=== PATIENT | female | born 1965 | race Caucasian/White ===

== ENCOUNTER 2017-05-29 15:10 | Observation (INO) ==
--- NOTE | 2017-05-29 15:41 | Emergency Department Note ---
Disposition Clinical Impression: Chest pain Qualifiers: Chest pain type: unspecified Qualified Code(s): R07.9 - Chest pain, unspecified Disposition: Admitted As Inpatient Condition: Good Time of Disposition: 17:50 Chest Pain HPI - General Chief Complaint: ED Chest Pain Stated Complaint: chest pain// light headed Time Seen by Provider: 05/29/17 15:35 Source: patient Limitations: no limitations Vital Signs Reviewed: Yes Nursing Notes Reviewed: Yes - History of Present Illness HPI Narrative: Patient presents to the ED the chief complaint of chest pain. Patient reports that a few hours prior to arrival. 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 She had associated nausea, diaphoresis, tingling in her face. The discomfort radiated into her left jaw and left arm. No vomiting. Was slightly short of breath at the time. Episode lasted 30-45 minutes consistently, and then resolved. States that she feels very weak and tired currently. Denies any changes in vision, but states that it feels like she has allergies in her eyes. She denies any diplopia or other concerns. No previous history of heart problems. States she has a history of hypertension. Does not smoke. No history of DVT, PE, malignancy or hormonal use. Severity scale (1-10): 10 - Related Data Home Medications Medication Instructions Recorded Confirmed Citalopram [CeleXA] 20 mg PO DAILY 05/10/16 05/29/17 hydroCHLOROthiazide 25 mg PO DAILY 05/29/17 05/29/17 [Hydrochlorothiazide] Allergies Allergy/AdvReac Type Severity Reaction Status Date / Time metronidazole [From Flagyl] AdvReac See Verified 05/29/17 19:49 Comments Penicillins [PCN] AdvReac Hives Verified 05/29/17 19:48 Eyes: Reports: vision change (difficult to describe) Cardiovascular: Reports: chest pain, palpitations Respiratory: Reports: dyspnea Gastrointestinal: Reports: nausea Musculoskeletal: Denies: back pain Integumentary: Denies: rash Neurological: Denies: weakness Endocrine: Reports: fatigue Chest Pain PMH - Past Medical History Medical history: Reports: asthma, hypertension Surgical history: Reports: cholecystectomy Psychiatric history: Reports: depression DISTRESSER history: Reports: no DISTRESSER history - Social History Smoking Status: Never smoker Alcohol use: Reports: rarely Drug use: Reports: none Physical Exam - General Limitations: no limitations General appearance: alert, in no apparent distress - Head Head exam: atraumatic, normocephalic, normal inspection - Eye Eye exam: Present: normal appearance, PERRL, EOMI - ENT ENT exam: normal exam, normal oropharynx, mucous membranes moist - Neck Neck exam: Present: normal inspection, full ROM, trachea midline - Chest Chest inspection: Present: normal inspection, symmetric chest wall rise - Respiratory Respiratory exam: Present: normal lung sounds bilaterally - Cardiovascular Cardiovascular exam: Present: regular rate, normal rhythm, normal heart sounds - Abdominal Exam Abdominal exam: Present: soft, Non-Tender. Absent: tenderness, distention, guarding, rebound, rigidity - Extremities Exam Extremities exam: Present: normal inspection, full ROM. Absent: tenderness, pedal edema - Back Exam Back exam: Present: normal inspection, full ROM. Absent: tenderness - Neurological Exam Neurological exam: Present: alert, oriented X3 - Psychiatric Psychiatric exam: Present: normal affect, normal mood - Skin Skin exam: Present: warm, dry, intact, normal color Course - Reevaluation(s) Reevaluation #1: Patient's heart score is 3, however, feel her symptoms are high risk and concerning. We will admit the hospitalist service for further workup. Patient family are agreeable with this and they did not fill comfortable sending her home either. Vital Signs Temperature 98 F 05/29/17 15:25 Pulse Rate 89 05/29/17 15:25 Respiratory Rate 20 05/29/17 15:25 Blood Pressure 138/85 05/29/17 15:25 O2 Sat by Pulse Oximetry 94 05/29/17 15:25 Temperature 97.7 F 05/29/17 19:33 Pulse Rate 90 05/29/17 19:33 Respiratory Rate 16 05/29/17 19:33 Blood Pressure 142/87 05/29/17 19:33 O2 Sat by Pulse Oximetry 96 05/29/17 19:33 Oxygen Delivery Oxygen Delivery Room Air Chest Pain - Medical Records Medical records reviewed: Yes I reviewed the patient's medical records. - Lab Data Lab results reviewed: Yes I reviewed the patient's lab results. Result diagrams: 05/29/17 15:38 05/29/17 15:38 Lab Results 05/29/17 05/29/17 05/29/17 Range/Units 15:38 15:38 15:38 WBC 10.3 (4.3-11.1) K/mcL RBC 4.82 (3.82-4.97) M/mcL Hgb 14.4 (11.5-15.4) g/dL Hct 41.5 (35.3-44.9) % MCV 86.1 (83.0-100.0) fL MCH 29.9 (28.0-33.3) pg MCHC 34.7 (31.6-35.5) g/dL RDW 12.4 (11.5-14.5) % Plt Count 252 (140-400) K/mcL MPV 8.7 L (9.4-12.4) fL Immature Gran % 0.5 (0-4) % Seg Neutrophils % 80.2 % Lymphocytes % 11.0 % Monocytes % 5.9 % Eosinophils % 2.0 % Basophils % 0.4 % Neutrophils # 8.2 (1.6-8.9) K/mcL Lymphocytes # 1.1 (0.6-4.6) K/mcL Monocytes # 0.6 (0.0-1.3) K/mcL Eosinophils # 0.2 (0.0-0.6) K/mcL Basophils # 0.0 (0.0-0.2) K/mcL Sodium 135 L (136-145) mEq/L Potassium 3.2 L (3.5-4.5) mEq/L Chloride 98 (98-109) mEq/L Carbon Dioxide 28 (19-29) mEq/L BUN 20 (7-20) mg/dL Creatinine 1.06 (0.57-1.11) mg/dL Est GFR ( Amer) > 60 (> 60) Est GFR (Non-Af Amer) 55 L (> 60) BUN/Creatinine Ratio 19 (6-26) Glucose 115 H (70-99) mg/dL Calculated Osmolality 284 (280-300) Calcium 9.8 (8.6-10.8) mg/dL Total Bilirubin 0.8 (0.2-1.2) mg/dL AST 32 (5-34) Units/L ALT 33 (0-55) Units/L Alkaline Phosphatase 98 (38-126) Units/L Troponin I 0.00 (0-0.03) ng/mL Serum Total Protein 7.7 (6.0-8.3) g/dL Albumin 4.1 (3.5-5.0) g/dL Globulin 3.6 H (2.4-3.5) g/dL Albumin/Globulin Ratio 1.1 (1.1-2.2) - Radiology Data Radiology results reviewed: Yes I reviewed the patient's radiology results. - EKG Data EKG attestation: Yes I reviewed and interpreted this EKG. EKG results narrative: Sinus rhythm, rate 88, IN interval 156, QRS 94, QTC 397, normal axis Heart Score - Score History: Highly Suspicious EKG: Normal Age: 45-65 Risk Factors: 1-2 risk factors Troponin: Less than normal limit HEART Score Total: 4 Attestation Statement - Attestation Attestation: I examined this patient and my medical decision-making was reviewed with the Resident Physician. I agree with the documented findings, disposition and treatment plan as described except to the extent set forth below. In summary 51 -year-old female with atypical chest pain symptoms. No recent cardiac catheterization or stress testing. Heart score is 3. Plan admit for further evaluation. Chest x-ray shows no acute findings. EKG nondiagnostic at time of admission. Initial cardiac biomarkers are negative.
[2017-05-29 16:01] LABS: Basophils % 0.4 %; Eosinophils # 0.2 K/mcL (0.0-0.6); Hematocrit 41.5 % (35.3-44.9); Hemoglobin 14.4 g/dL (11.5-15.4); Immature Granulocytes % 0.5 % (0-4); Lymphocytes # 1.1 K/mcL (0.6-4.6); Mean Corpuscular HGB Conc 34.7 g/dL (31.6-35.5); Mean Corpuscular Hemoglobin 29.9 pg (28.0-33.3); Mean Corpuscular Volume 86.1 fL (83.0-100.0); Mean Platelet Volume 8.7 fL (9.4-12.4); Monocytes # 0.6 K/mcL (0.0-1.3); Monocytes % 5.9 %; Neutrophils # 8.2 K/mcL (1.6-8.9); Platelet Count 252 K/mcL (140-400); Red Blood Count 4.82 M/mcL (3.82-4.97); Red Cell Distribution Width 12.4 % (11.5-14.5); Segmented Neutrophils % 80.2 %
[2017-05-29 16:18] LABS: Alanine Aminotransferase 33 Units/L (0-55); Albumin 4.1 g/dL (3.5-5.0); Albumin/Globulin Ratio 1.1 (1.1-2.2); Alkaline Phosphatase 98 Units/L (38-126); Aspartate Amino Transferase 32 Units/L (5-34); BUN/Creatinine Ratio 19 (6-26); Bilirubin,Total 0.8 mg/dL (0.2-1.2); Blood Urea Nitrogen 20 mg/dL (7-20); Calcium 9.8 mg/dL (8.6-10.8); Carbon Dioxide 28 mEq/L (19-29); Chloride 98 mEq/L (98-109); Globulin 3.6 g/dL (2.4-3.5); Glucose 115 mg/dL (70-99); Osmolality,Calculated 284 (280-300); Potassium 3.2 mEq/L (3.5-4.5); Sodium 135 mEq/L (136-145); Total Protein 7.7 g/dL (6.0-8.3); eGFR For African Americans > 60 (> 60); eGFR For Non-African Americans 55 (> 60)
[2017-05-29] MEDS ORDERED: Aspirin 325 MG TABLET PO ONE (16:44)
[2017-05-29] MEDS ORDERED: *HR* Morphine 2 MG/ML SYRINGE IVP PRN (17:58)
--- NOTE | 2017-05-29 18:12 | Internal Med History&Physical ---
<Amarilys Buckner - Last Filed: 05/29/17 18:05> Date of Encounter: 05/29/17 Time of Encounter: 18:06 Assessment and Plan (1) Chest pain Current visit: Yes Status: Acute presented with chest pain that started day of presentation. Improved in the ED, ASA given on arrival. Initial troponin negative, EKG without acute ST changes. No previous ischemic evaluation. Cycle troponin, check echo, stress test. TSH, Hgb A1c, lipid panel pending. Cont ASA, Qualifiers: Chest pain type: unspecified Qualified Code(s): R07.9 - Chest pain, unspecified (2) Essential hypertension Current visit: Yes Status: Acute per hx. BP mildly elevated. Cont home BP medications. Monitor BP and titrate PRN (3) Depression Current visit: Yes Status: Acute with anxiety. Cont home Celexa Qualifiers: Depression Type: major depressive disorder Qualified Code(s): F32.9 - Major depressive disorder, single episode, unspecified (4) DVT prophylaxis Current visit: Yes Status: Acute [facility] Internal Medicine - H&P: HPI Chief complaint: chest pain Admitted From: Home Plans for Post Hospital Care: Home History of present illness: Ms. Buckner is a 51 year old female with PMH HTN and depression who presented to [facility] [place] on 05/29/2017 with complaints of chest pain. She was placed in observation status for ACS rule out. Information obtained form chart review and patient report. Patient reports episode of chest pain day of presentation. Says she was sitting at desk at work, had abrupt onset chest pain. Described as a tightness, radiated to left arm and jaw. Says left arm felt heavy and she felt tingling sensation in jaws. Also reports associated dizziness, felt clammy and sweating. No SOB, CP resolved in the ED, says she has intermittent chest pain with deep inspiration Past Med Surg Social Fam HX - Past Medical History Medical history: asthma, hypertension Psychiatric history: depression - Past Surgical History Surgical History: cholecystectomy - Social History Smoking Status: Never smoker Smokeless Tobacco Status: No Alcohol use: rarely Drug use: none - Additional Family History Additional family history: Grandmother CAD Internal Medicine - H&P: Meds Citalopram [CeleXA] 20 mg PO DAILY 05/10/16 [History] hydroCHLOROthiazide [Hydrochlorothiazide] 25 mg PO DAILY 05/29/17 [History] Allergies metronidazole [From Flagyl] Adverse Reaction (Unverified 05/29/17 15:22) See Comments Penicillins [PCN] Adverse Reaction (Unverified 05/29/17 15:22) Hives All Systems PM: A 10-system review of systems was performed and is negative for pertinent findings except as documented above in the HPI. - Constitutional Constitutional: no chills, no fever(s), no night sweats - EENT Eyes: no change in vision, no discharge, no pain, no photophobia Ears: no ear discharge, no ear pain, no tinnitus Nose, mouth and throat: no dysphagia, no nasal discharge, no neck pain, no sore throat - Cardiovascular Cardiovascular ROS IM: chest pain, no diaphoresis, no dyspnea, no lightheadedness, no palpitations, no syncope - Respiratory Respiratory: no cough, no dyspnea, no wheezing, no excessive phlegm production - Gastrointestinal Gastrointestinal: no abdominal pain, no diarrhea, no hematemesis, no hematochezia, no melena, no nausea, no vomiting - Genitourinary Genitourinary: no change in urinary stream, no dysuria, no flank pain, no hematuria - Musculoskeletal Musculoskeletal ROS IM: no numbness, no tingling - Integumentary Integumentary IM: no rash, no unusual bruising - Neurological Neurological ROS: no confusion, no convulsions, no focal weakness, no numbness, no tingling, no tremor(s) - Hematologic/Lymphatic Hematologic/Lymphatic: no easy bruising - Constitutional Vitals: Temp Pulse Resp BP Pulse Ox 98 F 81 16 148/93 97 05/29/17 15:25 05/29/17 17:34 05/29/17 17:34 05/29/17 17:34 05/29/17 17:34 - Head Head exam: Present: atraumatic, normocephalic - Eye Eye exam: Present: PERRL, conjuntiva pink, sclera anicteric Pupils: Present: PERRL - Neck Neck exam general surgery: Present: supple, trachea midline. Absent: lymphadenopathy - Respiratory Respiratory exam: Present: CTAB. Absent: accessory muscle use, rales, rhonchi, wheezes - Cardiovascular Cardiovascular exam: Present: RRR, +S1, +S2. Absent: diastolic murmur, gallop, rubs, systolic murmur - GI/Abdominal GI/Abdominal exam: Present: normal bowel sounds, soft, no peritoneal signs. Absent: distended, tenderness - Extremities Exam Extremities exam: Present: warm, radial pulses palpable and symetrical. Absent : calf tenderness, cyanotic, pedal edema - Neurological Exam Neurological exam: Present: CN II-XII intact, oriented X3, no focal deficits. Absent: pronater drift, facial droop, speech deficit - Skin Skin exam: Present: dry, intact Internal Med - H&P Results - Labs CBC & Chem 7: 05/29/17 15:38 05/29/17 15:38 Labs: Short CBC 05/29/17 Range/Units 15:38 WBC 10.3 (4.3-11.1) K/mcL Hgb 14.4 (11.5-15.4) g/dL Hct 41.5 (35.3-44.9) % Plt Count 252 (140-400) K/mcL Neutrophils # 8.2 (1.6-8.9) K/mcL BMP 05/29/17 15:38 Sodium 135 L Potassium 3.2 L Chloride 98 Carbon Dioxide 28 BUN 20 Creatinine 1.06 Glucose 115 H Calcium 9.8 Cardiac Enzymes 05/29/17 Range/Units 15:38 Troponin I 0.00 (0-0.03) ng/mL Liver Function 05/29/17 Range/Units 15:38 Total Bilirubin 0.8 (0.2-1.2) mg/dL AST 32 (5-34) Units/L ALT 33 (0-55) Units/L Alkaline Phosphatase 98 (38-126) Units/L Albumin 4.1 (3.5-5.0) g/dL - Impressions ITS Impressions Chest X-Ray 05/29/17 15:23 IMPRESSION: No acute abnormality. D/ / Homero Hernandez MD / Homero Hernandez MD Interpreting Provider: Homero Hernandez MD <Fermin Kahn H - Last Filed: 05/29/17 18:25> Date of Encounter: 05/29/17 Internal Medicine - H&P: HPI History of present illness: Ms. Buckner is a 51 year old female All Systems PM: A 10-system review of systems was performed and is negative for pertinent findings except as documented above in the HPI. - Constitutional Vitals: Temp Pulse Resp BP Pulse Ox 98 F 81 16 148/93 97 05/29/17 15:25 05/29/17 17:34 05/29/17 17:34 05/29/17 17:34 05/29/17 17:34 Internal Med - H&P Results - Labs CBC & Chem 7: 05/29/17 15:38 05/29/17 15:38 - Attending Attestation Also past medical history of nephrolithiasis. Chest pain, schedule stress test in the morning, follow troponins Aspirin For this encounter, I have reviewed the DOCENT COORDINATOR or PA documentation, treatment plan, and medical decision making; and I have had face to face time with this patient.
[2017-05-30] MEDS ORDERED: *HR* Enoxaparin 40 MG/0.4 ML SYRINGE SQ SCH (06:00)
[2017-05-30 06:13] LABS: Basophils # 0.1 K/mcL (0.0-0.2); Basophils % 0.8 %; Eosinophils # 0.2 K/mcL (0.0-0.6); Eosinophils % 3.7 %; Hematocrit 40.6 % (35.3-44.9); Hemoglobin 13.7 g/dL (11.5-15.4); Immature Granulocytes % 0.3 % (0-4); Lymphocytes # 1.8 K/mcL (0.6-4.6); Lymphocytes % 28.1 %; Mean Corpuscular HGB Conc 33.7 g/dL (31.6-35.5); Mean Corpuscular Hemoglobin 29.5 pg (28.0-33.3); Mean Corpuscular Volume 87.5 fL (83.0-100.0); Monocytes # 0.6 K/mcL (0.0-1.3); Monocytes % 9.3 %; Neutrophils # 3.7 K/mcL (1.6-8.9); Platelet Count 237 K/mcL (140-400); Red Blood Count 4.64 M/mcL (3.82-4.97); Red Cell Distribution Width 12.6 % (11.5-14.5); Segmented Neutrophils % 57.8 %
[2017-05-30 06:26] LABS: Hemoglobin A1C 5.2 %
[2017-05-30 06:28] LABS: Alanine Aminotransferase 29 Units/L (0-55); Albumin 3.7 g/dL (3.5-5.0); Albumin/Globulin Ratio 1.1 (1.1-2.2); Alkaline Phosphatase 92 Units/L (38-126); Aspartate Amino Transferase 30 Units/L (5-34); BUN/Creatinine Ratio 22 (6-26); Blood Urea Nitrogen 18 mg/dL (7-20); Calcium 9.2 mg/dL (8.6-10.8); Carbon Dioxide 29 mEq/L (19-29); Chloride 102 mEq/L (98-109); Chol/HDL Ratio 3.2 (0-4.9); Cholesterol 184 mg/dL (< 200); Globulin 3.4 g/dL (2.4-3.5); Glucose 94 mg/dL (70-99); HDL Cholesterol 58 mg/dL (40-59); LDL Cholesterol,Calculated 112 mg/dL (0-99); Osmolality,Calculated 288 (280-300); Potassium 3.4 mEq/L (3.5-4.5); Sodium 138 mEq/L (136-145); Total Protein 7.1 g/dL (6.0-8.3); Triglycerides 72 mg/dL (< 150); eGFR For African Americans > 60 (> 60); eGFR For Non-African Americans > 60 (> 60)
[2017-05-30] MEDS ORDERED: hydroCHLOROthiazide 25 MG TABLET PO SCH (09:00)
[2017-05-30] MEDS ORDERED: Aspirin 81 MG TAB.CHEW PO SCH (09:00)
--- NOTE | 2017-05-30 10:39 | Nuclear Medicine Stress Report ---
Exercise Nuclear Stress Name: Evy Buckner Date of Study: 05/30/2017 Date: 1965 Ht: 67.0 in Medical Record#: [id number] Age: 51 Wt: 198.0 lb Gender: Female Order #: [id number] Location: [facility] Room: [facility] Supervising Provider: Stacie Bañuelos CNP Reading Physician: Yue Cantrell DO Ordering Physician: Jackeline Hunt CNP Primary Care Physician: Evy Bal MD Stress Technologist: Alexis Vang CRT Extractor Loader And Unloader: Endy Baez Indications: Chest Pain Impression: Perfusion imaging was negative for ischemia or infarct. Exercise ECG was negative for ischemia. Patient had 3/10 chest pain with stress. Gated EF = >70%. Recommend clinical correlation. History: Hypertension Stress Test Summary: Stress Test Type: Treadmill Baseline Information: Initial Heart Rate: 95 Blood Pressure: 132/84 Stress Information: Stress Time: 7 min 01 sec Test Terminated Due to (primary): Fatigue Maximum Blood Pressure: 162/86 Maximum Heart Rate: 168 Percent Maximum Heart Rate Achieved: 99 Double Product: 50310 METS Reached: 10.1 Symptoms: Fatigue, Chest pain Nuclear Summary: SPECT myocardial perfusion imaging using Tc99m Sestamibi given intravenously was performed at rest and following cardiac stress testing. The resting images were obtained following initial dose of 11.5 mCi. Following stress an additional dose of 31.5 mCi was given at peak exercise or 30 seconds post regadenoson infusion. Medication Given: Time Medication Dose Units Route Findings: Stress Note * Resting ECG demonstrated normal sinus rhythm with nonspecific ST abnormalities and q waves present in inferior/lateral leads. * Exercise ECG is negative for ischemia. * No arrhythmias were noted during stress. * Patient had 3/10 chest pain at peak stress. Hemodynamic responses * Normal hemodynamic responses to exercise. Study Quality * Study quality is good. Gated EF > 70% * Gated EF > 70%. Left Ventricle * The left ventricle is not dilated. NORMALS * Normal wall motion. * Normal segmental perfusion in stress. * Normal Segmental Perfusion in rest. TID * No evidence of transient ischemic dilatation. Lung Uptake * There is no evidence of increase lung uptake. Updated by Yue Cantrell on 05/30/2017 10:34:18 AM electronically signed on 05/30/2017 10:35:34 AM with status of Final
[2017-05-30 11:16] VITALS: BP 129/79
--- NOTE | 2017-05-30 14:02 | Discharge Summary ---
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 She says that she works in a high stress environment chest pain began at work. Chest pain had abrupt onset, described as tightness radiating to left arm and jaw. She says her left arm felt heavy. She says she also felt dizzy, clammy and sweaty. She denies any shortness of breath. She said the chest pain resolved in the emergency department and has had intermittent chest pain since. She says it does increase with deep inspiration. It is not reproducible with palpation or movement. Troponins were negative 3. Chest x-ray was negative for any acute abnormality. Stress test was negative for ischemia or infarct with a gated EF greater than 70%. She did have 3 out of 10 chest pain with the stress test. Echo shows LVEF of 60% with normal systolic function, mild left ventricle diastolic dysfunction no significant valvular dysfunction noted pulmonary hypertension. There is no evidence of PFO with agitated saline contrast. Upon examination she says she is pain-free and believes that the chest pain is directly related to her exceptionally stressful work environment. Qualifiers: Chest pain type: unspecified Qualified Code(s): R07.9 - Chest pain, unspecified (2) Essential hypertension Priority: Secondary Status: Chronic Comments: Well-controlled in inpatient setting. Continue home medications. (3) Depression Priority: Secondary Status: Acute Comments: Chronic. Continue Celexa. Qualifiers: Depression Type: major depressive disorder Qualified Code(s): F32.9 - Major depressive disorder, single episode, unspecified (4) DVT prophylaxis Priority: Secondary Status: Acute Comments: Patient is ambulatory and observation status. Lovenox subcutaneous. - Discharge Medications Home Medications: Citalopram [CeleXA] 20 mg PO DAILY 05/10/16 [History] hydroCHLOROthiazide [Hydrochlorothiazide] 25 mg PO DAILY 05/29/17 [History] Aspirin 81 mg PO DAILY 05/30/17 [Rx] Allergies/Adverse Reactions: Allergies metronidazole [From Flagyl] Adverse Reaction (Verified 05/29/17 19:49) See Comments Penicillins [PCN] Adverse Reaction (Verified 05/29/17 19:48) Hives Date of admission: 05/29/17 18:12 Primary care physician: Evy Bal MD Discharging clinician: Suad Ramirez Anticipated date of discharge: 05/30/17 - Patient Status Disposition: Home, Self-Care Functional capacity at discharge: independent ambulation Overall status at discharge: patient is back to baseline - Discharge Instructions Follow Up With: Evy Bal MD [Primary Care Provider] - Additional Instructions: Please follow up with your primary care provider in the next 7-10 days for a follow-up visit. You may return to work on June 04. I was unable to give you the Vistaril due to potential drug interaction and cardiac side effects between the Vistaril and Celexa that you already take. Discuss possible medication for anxiety with your primary care provider. Also try to find some relaxation techniques that you can fit into your daily routine. Return to the emergency department as needed for any other problems or concerns or if her symptoms return or worsen. - Diet and Activity Activity: increase activity as tolerated Diet: advance to your usual diet Hospital course: Ms. Buckner is a 51 year old female with past medical has history of hypertension and depression. She presented to the emergency department yesterday after sudden onset chest pain with radiation to jaw and left arm, left arm heaviness, feeling clammy and nauseated. 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 She states she feels as if the chest pain is related to the increased stress, workload, and increased work hours. Patient describes the incident as heavy pressure midsternal area with associated nausea, diaphoresis, tingling in her face. Radiated into her left jaw and left arm with no vomiting. She was short of breath. She said it lasted for 30-45 minutes and then resolved. She said that she felt very weak and tired after. She has no prior cardiac history and neither parent had cardiac history either. She does have hypertension, she is not obese and she does not smoke. She has had the pain intermittently, but less severe throughout the visit. She requested the rest of the week off from work and initially we had discussed some Vistaril for discharge. Due to prolongation of QT interval with Vistaril and Celexa, I opted to not give her the Vistaril for home, but instead suggested relaxation techniques that she could fit into her schedule. He denies chest pain currently and states she is ready to go home. Chest x-ray was negative for any acute processes. Troponins were negative. Stress test was negative for acute ischemia or infarct with a gaited EF of greater than 70%. Echocardiogram showed LVEF of 60% with normal systolic function mild LV diastolic dysfunction, no significant valvular dysfunction and no pulmonary hypertension. I tend to agree with the patient that the chest pain is most likely stress/anxiety induced. Patient would benefit from relaxation techniques and possibly medication change when she visits her primary care physician. Her labs are within normal limits. Her vital signs have been stable and within normal limits. Patient is table and appropriate for discharge. - Time Spent with Patient Total time spent providing and/or coordinating discharge services: Less than 30 minutes - Constitutional Vitals: Temp Pulse Resp BP Pulse Ox 97.8 F 63 16 129/79 99 05/30/17 11:15 05/30/17 11:15 05/30/17 11:15 05/30/17 11:15 05/30/17 11:15 General appearance: Present: cooperative, A&O X 3, pleasant, no acute distress, answers questions appropriately - Head Head exam: Present: normal inspection - Eye Eye exam: Present: normal appearance, conjuntiva pink - ENT ENT exam: Present: mucous membranes moist, normal exam - Neck Neck exam general surgery: Present: normal inspection. Absent: lymphadenopathy , tenderness - Respiratory Respiratory exam: Present: CTAB. Absent: chest wall tenderness, decreased breath sounds, rales, respiratory distress, rhonchi, stridor, wheezes - Cardiovascular Cardiovascular exam: Present: RRR, +S1, +S2. Absent: clicks, diastolic murmur, gallop, systolic murmur - GI/Abdominal GI/Abdominal exam: Present: normal bowel sounds, soft. Absent: distended, hepatomegaly, tenderness - Extremities Exam Extremities exam: Present: normal inspection, warm, radial pulses palpable and symetrical. Absent: calf tenderness, pedal edema, tenderness - Neurological Exam Neurological exam: Present: alert, oriented X3. Absent: facial droop, speech deficit - Skin Skin exam: Present: dry, intact, warm. Absent: rash
--- NOTE | 2017-05-30 17:27 | Electrocardiograph Report ---
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
--- NOTE | 2017-05-30 20:38 | Electrocardiograph Report ---
[place] [address] Test Date: 2017-05-29 Pat Name: Evy Buckner Department: 105 Room: 3B Gender: F Psychic Reader: [facility] : 1965 Requested By: Amarilys Buckner Order Number: [id number] Reading MD: Luís Franklin MD Measurements Intervals [place] Rate: 88 P: -18 ME: 156 QRS: -7 QRSD: 94 T: 39 QT: 352 QTc: 397 Interpretive Statements SINUS RHYTHM Poor R wave progression Electronically Signed On 05-30-2017 20:36:52 EDT by Luís Franklin MD
== END 2017-05-30 15:48 | disposition home or self-care (01) ==
LOC: 3BNU 15:10 → EMEROO 15:10 → 3BNU 19:06
PROVIDERS: ADMIT Nurse Practitioner Family; ATTEND Nurse Practitioner Family